=== PATIENT | male | born 1960 | race Caucasian/White ===

== ENCOUNTER 2019-11-18 16:03 | Outpatient (CLI) | payer OTHER, SELFPAY ==
[2019-11-20 02:52] LABS: SARS-CoV-2 RNA PCR Positive
== END 2019-11-18 16:04 | disposition home or self-care (01) ==
PROVIDERS: PCP Internal Medicine; Visit Provider Internal Medicine
DX: U07.1 COVID-19 (principal)
CPT/HCPCS: 87635; C9803; U0003

== ENCOUNTER 2019-12-01 08:07 | Outpatient (CLI) | payer OTHER, SELFPAY ==
[2019-12-01 23:57] LABS: SARS-CoV-2 RNA PCR Positive
== END 2019-12-01 08:08 | disposition home or self-care (01) ==
LOC: CHSLAB 08:08
PROVIDERS: PCP Internal Medicine; Visit Provider Internal Medicine
DX: U07.1 COVID-19 (principal)
CPT/HCPCS: 87635; C9803; U0003

== ENCOUNTER 2020-08-12 21:42 | Emergency (ER) | payer OTHER, SELFPAY ==
--- NOTE | ~2020-08-12 | CT_ITS ---
EXAMINATION: CT IAC/mastoids BI wo con EXAM DATE: 08/12/2020 22:17 INDICATION: Severe right ear pain, drainage, bleeding right ear pain with bleeding and drainage. TECHNIQUE: Spiral CT of the internal auditory canals was performed without contrast. Axial and leighton nal images were reviewed. The dose-length product (DLP) for this examination was 372.65 mGy-cm. The exposure was tailored according to patient size, and iterative reconstruction (ASIR) was used as add itional dose reduction technique. There is no prior study for comparison. FINDINGS: RIGHT side: Tiny amount of middle ear opacity between the scutum and ossicles, without erosion of the scutum. The middle ear is well otherwise aerated. The mastoid air cells are well aerated. The shakir nth cranial nerve has a normal course. The ossicles are normal in appearance. The cochlea and semi circular canals are normal in appearance. Internal auditory canal is normal in appearance and symmet jose compared to contralateral side. Unremarkable external auditory canal, patent and symmetric to th e contralateral side. LEFT side: The middle ear is well aerated. The mastoid air cells are well aerated. The seventh cran ial nerve has a normal course. The scutum is intact. The ossicles are normal in appearance. Small portions of the tegmen tympani have wall that is imperceptible. The cochlea and semicircular canals are normal in appearance. Internal auditory canal is normal in appearance and symmetric compared to contralateral side. Unremarkable external auditory canal. IMPRESSION: Tiny amount of right middle ear opacity. Unremarkable external auditory canals. Reviewed, dictated and finalized at location G. IMPRESSION: Tiny amount of right middle ear opacity. Unremarkable external aud itory canals.
[2020-08-12 21:45] VITALS: BP 138/97; PULSE 109; RESP 20; TEMP 36.9; O2SAT 94
--- NOTE | 2020-08-12 21:46 | ED.EAR ---
HPI - Ear Problem General Chief complaint: Ear Stated complaint: something in ear Time Seen by Provider: 08/12/20 21:48 Source: patient Mode of arrival: ambulatory Limitations: no limitations History of Present Illness HPI Narrative: 59-year-old man comes in today complaining of severe right ear pain that started earlier today after he put sweet oil in his ear. Patient states for last 2 weeks he has been having a skin condition of his eyebrows, eyelashes, and forehead. His doctor gave him topical steroids for the symptoms. He states that few days ago he found something in his right ear and pulled out which caused a lot of blood to leave his ear canal. He denies prior ear surgeries. He does not recall foreign body in his ear. MD Complaint: ear pain Location: right ear Duration: constant Severity: severe Relieving factors: nothing Exacerbating factors: palpation Discharge from ear: Reports yes - bloody Treatment prior to arrival: none Related Data Home Medications Medication Instructions Recorded Confirmed fluticasone propion-salmeterol 2 puff INHALATION DAILY 08/12/20 08/12/20 [Advair HFA] Allergies Allergy/AdvReac Type Severity Reaction Status Date / Time No Known Allergies Allergy Verified 08/12/20 23:04 Review of Systems Constitutional: Constitutional: Denies chills and Denies fever(s) Eyes: Eyes: Denies change in vision and Denies photophobia ENT: Denies dysphagia, Denies nasal congestion and Denies sore throat Cardiovascular: Cardiovascular: Denies chest pain and Denies radiating jaw, neck or arm pain Respiratory: Respiratory: Denies cough and Denies dyspnea Gastrointestinal: Gastrointestinal: Denies abdominal pain, Denies nausea and Denies vomiting Integumentary/Breasts: Skin/Breast: Reports pruritus, Reports erythema and Reports rash Hematologic/Lymphatic: Hematologic/Lymphatic: Denies easy bleeding and Denies easy bruising Allergic/Immunologic: Allergic/Immunologic: Denies lip swelling, Denies throat swelling and Denies tongue swelling PMFSH Past Medical History Medical History (Updated 08/12/20 @ 22:04 by Cory Wright MD) Asthma Pacemaker Social History Social History (Updated 08/12/20 @ 22:01 by Cory Wright MD) Smoking status: Never smoker Alcohol use details: occasional Substance use: current Substance use type: marijuana Other substance usage details: occasional Exam Const: General: healthy appearing and diaphoretic Orientation/consciousness: patient oriented x3 Other: Severe distress. HENMT: Head: normal to inspection Ears: external ears normal (except for mild erythema), TM's normal bilaterally ( Right TM is injected but translucent and with mild bulging.) and EAC's normal ( Erythema the right EAC without foreign body or swelling) Face and sinus: normal facial exam Mouth: Yes moist mucous membranes Throat: posterior oropharynx normal Eyes: Conjunctivae: conjunctivae normal Pupils: Equal, round and reactive pupils present EOM: EOMs intact bilaterally Resp: Effort & Inspection: normal respiratory effort and not labored Auscultation: clear to auscultation bilaterally, no rales, no rhonchi and no wheezes Cardio: Rate: regular rate Rhythm: regular rhythm Heart sounds: no murmurs Skin: General skin exam: normal color, no jaundice and no pallor Other: Scaly rash at eyebrows Neuro: General: patient oriented x3, moves all extremities, no focal motor deficits and CN's II-XI intact bilaterally Speech: normal speech Gait exam (Neuro): Normal gait present Extrem: General: normal to inspection and no clubbing, cyanosis or edema Psych: Appearance: grossly normal and well kempt Mental Status: mental status grossly normal Affect: Anxious affect present Attitude: cooperative Thought content: Yes Normal thought content present Discharge Plan Discharge Clinical Impression: Otitis externa Qualifiers: Otitis externa type: unspecified type Ch
[2020-08-12] MEDS: LIDOCAINE HCL 2% JELLY 5 ML TUBE 1 APPLIC MUCOUS MEM (22:00)
[2020-08-12] MEDS: HYDROcodone/acetaminophen (*CRX) 5-325 MG TABLET 1 TAB PO (22:06)
[2020-08-12 23:06] VITALS: BP 125/74; PULSE 81; RESP 20; TEMP 36.9; O2SAT 94
== END 2020-08-12 23:20 | disposition home or self-care (01) ==
PROVIDERS: Emergency Provider Emergency Medicine; PCP Internal Medicine
DX: H60.501 Unspecified acute noninfective otitis externa, right ear (principal)
CPT/HCPCS: 70480; 99283; 99284; A9270

== ENCOUNTER 2021-02-27 10:59 | Outpatient (CLI) | payer OTHER, SELFPAY ==
--- NOTE | ~2021-02-27 | XR_ITS ---
EXAMINATION: XR chest 2V 02/27/2021 11:17 INDICATION: Cough and chest congestion PROCEDURE: 2 view chest COMPARISON: 03/17/2018 FINDINGS: The lungs are clear. The cardiomediastinal silhouette is within normal limits. There are no pleural effusions. There is no pneumothorax suspected. IMPRESSION: 1: NO ACUTE CARDIOPULMONARY DISEASE. Reviewed, dictated and finalized at location B. [employer]
== END 2021-02-27 11:00 | disposition home or self-care (01) ==
LOC: CHSLAB 11:02
PROVIDERS: PCP Internal Medicine; Visit Provider Internal Medicine
DX: R05.9 Cough, unspecified (principal)
CPT/HCPCS: 71046

== ENCOUNTER 2023-09-05 11:08 | Emergency (ER) | payer OTHER, SELFPAY ==
[2023-09-05 11:23] VITALS: BP 133/86; PULSE 90; RESP 16; TEMP 36.9; O2SAT 99
--- NOTE | 2023-09-05 12:18 | ED.EAR ---
HPI - Ear Problem General Chief complaint: Ear Stated complaint: Right ear drainage Time Seen by Provider: 09/05/23 12:18 Source: patient Mode of arrival: ambulatory Limitations: no limitations History of Present Illness HPI Narrative: 62-year-old male presented for complaint of right ear pain and drainage. endorses drainage is white, stringy, and sticky which has resulted in a callus to the index finger and loss of finger prints as a result of digging in the ear. He states he has had similar symptoms for 2 years, for which he was seen by ENT at the onset and told he had a staph infection. States 'it went away but it didn't.' Denies tinnitus, dizziness, nausea, vomiting fevers or chills. MD Complaint: ear pain Related Data Home Medications Medication Instructions Recorded Confirmed zonisamide 100 mg capsule 200 mg PO DAILY 09/05/23 09/05/23 Allergies Allergy/AdvReac Type Severity Reaction Status Date / Time No Known Allergies Allergy Verified 09/05/23 11:54 Review of Systems Review of Systems: CONSTITUTIONAL: Denies malaise, chills, or fever. EYES: Denies visual changes, redness, or discharge. ENT: Denies rhinorrhea, congestion, sinus pain, and sore throat. Reports ear pain CARDIOVASCULAR: Denies chest pain, palpitations, or edema. RESPIRATORY: Denies cough or dyspnea. SKIN: Denies rash or itching. MUSCULOSKELETAL: Denies myalgia. NEUROLOGIC: Denies headache. All systems reviewed & are unremarkable except as noted in HPI and below PMFSH Past Medical History Medical History (Updated 09/05/23 @ 13:20 by Kelly Martinez APRN) Asthma Pacemaker Seizures Surgical History Surgical History (Updated 09/05/23 @ 13:18 by Kelly Martinez APRN) H/O aortic valve replacement Family History Family History Father Diabetes mellitus Social History Social History Smoking status: Never smoker Alcohol use details: occasional Substance use: current Substance use type: marijuana Other substance usage details: occasional Comments At time of signature, agree with nursing past medical, surgical, social and family history. There is no relevant family history pertinent to the presenting complaint Exam Narrative: GENERAL: Well-appearing EYES: PERRLA, conjunctivae clear ENT: Nares clear. Mucous membranes moist. Left TM pearly godfrey with dull light reflex; right TM mildly erythematous and intact; canal erythematous with mild swelling no drainage; right tragal tenderness skin is scaly to tragus. NECK: Supple. No lymphadenopathy CHEST: Clear to auscultation, breath sounds equal. HEART: Regular rate and rhythm. No murmur heard. SKIN: Warm, dry, no rash. NEURO: Alert and oriented x3. PSYCH: Normal mood and affect Course Course Emergency Course: Patient is aware of diagnosis, understands and agrees to treatment plan. Anticipatory guidance given. Patient agrees to follow-up as directed and is aware of reasons to seek care at the emergency department. Portions of this record may have been created with voice recognition software Level of Care: Express Care Visit Vital Signs Vital signs: Vital Signs Temperature 98.5 F 09/05/23 11:23 Pulse Rate 90 09/05/23 11:23 Respiratory Rate 16 09/05/23 11:23 Blood Pressure 133/86 09/05/23 11:23 Pulse Oximetry 99 09/05/23 11:23 Oxygen Delivery Room Air 09/05/23 11:23 Temperature 98.5 F 09/05/23 11:23 Pulse Rate 90 09/05/23 11:23 Respiratory Rate 16 09/05/23 11:23 Blood Pressure 133/86 09/05/23 11:23 Pulse Oximetry 99 09/05/23 11:23 Oxygen Delivery Room Air 09/05/23 11:23 Reviewed Medical Decision Making MDM Narrative Medical decision making narrative: discussed physical exam findings consistent with otitis externa, will also cover for otitis media. Discussed possibility of dermatitis such a
== END 2023-09-05 12:30 | disposition home or self-care (01) ==
PROVIDERS: Emergency Provider Nurse Practitioner Family; PCP Internal Medicine
DX: H60.91 Unspecified otitis externa, right ear (principal); H66.91 Otitis media, unspecified, right ear; J45.909 Unspecified asthma, uncomplicated; G40.909 Epilepsy, unspecified, not intractable, without status epilepticus; Z95.0 Presence of cardiac pacemaker; Z95.2 Presence of prosthetic heart valve; F12.90 Cannabis use, unspecified, uncomplicated
CPT/HCPCS: 99213; G0463

== ENCOUNTER 2023-09-19 13:55 | Emergency (ER) | payer OTHER, SELFPAY ==
[2023-09-19 14:00] VITALS: BP 148/94; PULSE 83; RESP 20; TEMP 36.9; O2SAT 98
[2023-09-19 14:10] VITALS: BP 148/94; PULSE 83; RESP 20; TEMP 36.9; O2SAT 98
--- NOTE | 2023-09-19 14:18 | ED.EAR ---
HPI - Ear Problem General Chief complaint: Ear Stated complaint: Ear History of Present Illness [facility] Narrative: Pt is a 62 y/o male, PMHx of seizures, presents to with recurrent right ear itching/white flaking from the canal, for which he has been treated with Ciprodex and Augmentin most recently. He notes his symptoms improved with the ear drops however, his symptoms returned upon completion. He has persistent itching in the canal and often inserts his finger or meera pins to scratch the itch, removing white stringy flakes. He has also instilled alcohol, peroxide and iodine in an attempt to alleviate the itching without relief. He has been to ENT in the past but states he lost his insurance after he two years ago and was unable to see them again for FU. He denies any other modifying factors, he has no hearing loss, denies any other complaints. Related Data Home Medications Medication Instructions Recorded Confirmed zonisamide 100 mg capsule 200 mg PO DAILY 09/05/23 09/19/23 Allergies Allergy/AdvReac Type Severity Reaction Status Date / Time No Known Allergies Allergy Verified 09/19/23 14:02 Review of Systems ENT: Comments: refer to [facility] Past Medical History Medical History (Updated 09/19/23 @ 14:26 by AMAURY Yanes) Asthma Pacemaker Seizures Surgical History Surgical History (Updated 09/05/23 @ 13:18 by Kelly Martinez APRN) H/O aortic valve replacement Family History Family History Father Diabetes mellitus Social History Social History Smoking status: Never smoker Alcohol use details: occasional Substance use: current Substance use type: marijuana Other substance usage details: occasional Exam Const: General: healthy appearing and no acute distress Nutritional Appearance: well nourished Orientation/consciousness: patient oriented x3 Limitations: no limitations HENMT: Head: normal to inspection Ears: TM's normal bilaterally and Abnormal EAC present (right EAC is dry, flaky in appearance. Mildly tender with manipulation) Face/Nose/Sinus: Normal external nose present Face and sinus: normal facial exam Mouth: Yes Normal oral and palatal mucosa present Teeth and gingiva: dentition normal Throat: posterior oropharynx normal and uvula midline Other: no swelling or exudate noted. No TM perforation. Eyes: Conjunctivae: conjunctivae normal Pupils: Equal, round and reactive pupils present EOM: EOMs intact bilaterally Neck: Neck: normal visual inspection, no lymphadenopathy and no meningeal signs Resp: Effort & Inspection: normal respiratory effort Auscultation: clear to auscultation bilaterally Cardio: Rate: regular rate Rhythm: regular rhythm Back/Spine/Pelvis: Back: no CVA tenderness Skin: General skin exam: normal color Rashes: no rashes Wounds: no wounds Neuro: General: patient oriented x3, moves all extremities, no meningeal signs, no focal motor deficits and CN's II-XI intact bilaterally Cranial nerves: Yes Nystagmus not present Speech: normal speech Gait exam (Neuro): Normal gait present Extrem: General: normal to inspection Psych: Mental Status: mental status grossly normal Course Course Emergency Course: Suspect ear canal is dry and requires steroids, in thang of antibiotic therapy however, he does have some mild canal tenderness; plan therefore to treat with Ciprodex, daily hydrocortisone with gentle application into the canal using a clean finger. FU with ENT without fail. Level of Care: Express Care Visit ([id number]) Vital Signs Vital signs: Vital Signs Temperature 36.9 C 09/19/23 14:00 Pulse Rate 83 09/19/23 14:00 Respiratory Rate 20 09/19/23 14:00 Blood Pressure 148/94 H 09/19/23 14:00 Pulse Oximetry 98 09/19/23 14:00 Oxygen Delivery Room Air 09/19/23 14:00 Temperature 36.9 C
== END 2023-09-19 14:30 | disposition home or self-care (01) ==
PROVIDERS: Emergency Provider Nurse Practitioner Family
DX: H60.391 Other infective otitis externa, right ear (principal); J45.909 Unspecified asthma, uncomplicated; G40.909 Epilepsy, unspecified, not intractable, without status epilepticus; Z95.0 Presence of cardiac pacemaker; Z95.2 Presence of prosthetic heart valve
CPT/HCPCS: 99213; G0463